=== PATIENT | female | born 1965 | race American Indian/Alaskan Native ===

== ENCOUNTER 2017-01-29 19:18 | Emergency (ER) | payer MEDICARE ==
[2017-01-29] MEDS ORDERED: MOTRIN PO ONE ×2 (19:50→19:59)
[2017-01-29 19:51] VITALS: BP 143/90
== END 2017-01-30 00:34 | disposition left against medical advice (07) ==
LOC: ED 19:18
DX: M25.561 Pain in right knee (principal); M25.562 Pain in left knee; W19.XXXA Unspecified fall, initial encounter; Y93.9 Activity, unspecified; Y99.9 Unspecified external cause status; Y92.89 Other specified places as the place of occurrence of the external cause